=== PATIENT | female | born 1980 | race Caucasian/White ===

== ENCOUNTER → 2018-02-19 | Outpatient (CLI) | payer OTHER | LOC: FIMAGING 11:02 | PROVIDERS: ATTEND Family Medicine | DX: N94.89 Other specified conditions associated with female genital organs and menstrual cycle (principal); N91.2 Amenorrhea, unspecified ==

== ENCOUNTER → 2018-10-24 | Outpatient (CLI) | payer OTHER | LOC: SUPIMAGING 13:44 → EDSTATUS 15:49 | PROVIDERS: ATTEND Family Medicine | DX: R05 Cough (principal) | CPT/HCPCS: 71046-PN ==

== ENCOUNTER 2018-11-12 20:17 | Emergency (ER) | payer OTHER ==
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
[2018-11-12 21:39] VITALS: BP 137/81
== END 2018-11-12 21:39 | disposition home or self-care (01) ==
DX: S06.0X0A Concussion without loss of consciousness, initial encounter (principal); S80.212A Abrasion, left knee, initial encounter; W19.XXXA Unspecified fall, initial encounter; Y92.9 Unspecified place or not applicable; Y93.9 Activity, unspecified; Y99.9 Unspecified external cause status

== ENCOUNTER → 2018-12-28 | Outpatient (CLI) | payer OTHER | LOC: FIMAGING 10:31 | PROVIDERS: ATTEND Family Medicine | DX: R10.9 Unspecified abdominal pain (principal) ==

== ENCOUNTER → 2019-02-20 | Outpatient (CLI) | payer OTHER | LOC: EMCIMAGING 11:14 | PROVIDERS: ATTEND Family Medicine | DX: R05 Cough (principal) | CPT/HCPCS: 71046-PN ==

== ENCOUNTER 2019-03-26 21:46 | Emergency (ER) | payer OTHER ==
[2019-03-26] MEDS ORDERED: oxyCODONE CR 15 MG TAB PO ONE (22:12)
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
[2019-03-26] MEDS ORDERED: oxyCODONE IR 5 MG TAB ONE (22:25)
[2019-03-26] MEDS ORDERED: GADOBUTROL 10 ML VIAL IVP ONE (22:56)
[2019-03-26 23:42] LABS: PLATELET COUNT 391 10^3/uL (150-400)
[2019-03-27 00:31] VITALS: BP 160/80
== END 2019-03-27 00:31 | disposition home or self-care (01) ==
DX: M48.061 Spinal stenosis, lumbar region without neurogenic claudication (principal); M51.16 Intervertebral disc disorders with radiculopathy, lumbar region; M46.96 Unspecified inflammatory spondylopathy, lumbar region; M46.97 Unspecified inflammatory spondylopathy, lumbosacral region; M25.551 Pain in right hip
CPT/HCPCS: A9585